=== PATIENT | female | born 1975 | race Caucasian/White ===

== ENCOUNTER → 2018-06-29 | Outpatient (CLI) | payer OTHER ==
[~2018-06-29] MED LIST: FLAS1EAC2 TD; FLAS1KIT2; INSU100I28 SQ; INSU100I30 SQ
[2018-06-29 10:08] LABS: PLATELET COUNT, AUTOMATED 338 K/uL (150-450)
[2018-06-29 10:14] LABS: LDL CHOLESTEROL 64 mg/dl
== END ==
LOC: LAB 09:31
PROVIDERS: ATTEND Internal Medicine
DX: E11.9 Type 2 diabetes mellitus without complications (principal)
CPT/HCPCS: 36415; 82040; 82247; 82310; 82374; 82435; 82465; 82565; 82947; 83036; 83718; 84075; 84132; 84155; 84295; 84443; 84450; 84460; 84478; 84520; 85025

== ENCOUNTER → 2018-07-06 | Outpatient (CLI) | payer OTHER ==
--- NOTE | 2018-07-06 11:32 | RADIOLOGY IMAGING REPORT ---
FACILITY: [facility] PATIENT NAME: Nora Winston : 1975 MR: [id number] V: [id number] EXAM DATE: ORDERING PHYSICIAN: DIPESH ANGUIANO TECHNOLOGIST: Location: [facility] Patient: Nora Winston : 1975 Visit/Account:[id number] Date of Sevice: 07/06/2018 CAROTID HISTORY: carotid calcification on dental x-ray, type I diabetes COMPARISON: None. FINDINGS: Grayscale, duplex and color Doppler interrogation of the extracranial carotid and vertebral arteries was performed bilateral. On the right, peak systolic velocities within the common and internal carotid arteries are 135 and 89 cm/sec respectively. There is very mild plaque at the right carotid bulb. Antegrade flow within th e common, internal and external carotid arteries as well as vertebral artery. ICA/CCA ratio 1. On the left, peak systolic velocities within the common and internal carotid arteries are 135 and 80 cm/sec respectively. There is very mild plaque left carotid bulb. Antegrade flow within the common, internal and external carotid arteries as well as vertebral artery. ICA/CCA ratio 0.7. Incidentally noted is a 1.2 cm slightly heterogeneous ovoid nodule in the left lobe the thyroid gland . Formal thyroid ultrasound may be helpful IMPRESSION: Very mild plaque at the carotid bulbs bilaterally although no hemodynamically significant lesion iden tified 1.2 cm left thyroid nodule for which formal thyroid ultrasound may be helpful Velocity criteria are extrapolated from diameter data as defined by the Society of Radiologists in Ul trasound Consensus Conference Radiology 2003; 229;340-346 Report Dictated By: Amber Rice MD at 07/06/2018 11:24 AM Report E-Signed By: Amber Rice MD at 07/06/2018 11:26 AM WSN:[email or web address]
== END ==
LOC: US 00:52
PROVIDERS: ATTEND Internal Medicine
DX: I65.23 Occlusion and stenosis of bilateral carotid arteries (principal); E04.1 Nontoxic single thyroid nodule
CPT/HCPCS: 93880

== ENCOUNTER → 2018-07-20 | Outpatient (CLI) | payer OTHER | LOC: LAB 09:40 | PROVIDERS: ATTEND Internal Medicine | DX: E11.9 Type 2 diabetes mellitus without complications (principal) | CPT/HCPCS: 81001; 82043 ==

== ENCOUNTER → 2018-08-03 | Outpatient (CLI) | payer OTHER ==
--- NOTE | 2018-08-03 10:56 | RADIOLOGY IMAGING REPORT ---
FACILITY: [facility] [place] PATIENT NAME: Nora Winston : 1975 MR: [id number] V: [id number] EXAM DATE: ORDERING PHYSICIAN: DIPESH ANGUIANO TECHNOLOGIST: Location: [facility] Patient: Nora Winston : 1975 Visit/Account:[id number] Date of Sevice: 08/03/2018 THYROID HISTORY: thyroid nodule COMPARISON: None. FINDINGS: SIZE: Right lobe: 5.9 x 1.3 x 1.9 cm Left lobe: 5.4 x 1.1 x 1.7 cm Isthmus: 1.1 mm PARENCHYMA: Homogeneous. NODULES: Right lobe: * There are two Tiny colloid cysts in the right lobe Left lobe: * There is a 1.1 x 0.8 x 0.7 cm slightly heterogeneous hypoechoic nodule in the mid left lobe Isthmus: * None discrete. VASCULARITY: Within normal limits. ADDITIONAL FINDINGS: None. IMPRESSION: There is a 1.1 x 0.8 x 0.7 cm heterogeneous hypoechoic nodule in the mid left lobe for which ultrasou nd-guided fine-needle aspiration is recommended REFERENCE: 2015 [place] [employer] Management Guidelines for Adult Patients with Thyroid Nodules and D ifferentiated Thyroid Cancer: The [place] [employer] Guidelines Task Force on Thyroid Nodul es and Differentiated Thyroid Cancer. SONOGRAPHIC PATTERNS: * Benign: Purely cystic nodules (no solid component); estimated risk of malignancy <1 percent; no bi opsy recommended. * Very Low Suspicion: Spongiform or partially cystic nodules without any of the sonographic features described in low, intermediate, or high suspicion patterns; estimated risk of malignancy <3 percent; consider FNA at > 2 cm (Observation without FNA is also a reasonable option). * Low Suspicion: Isoechoic or hyperechoic solid nodule, or partially cystic nodule with eccentric so lid areas, without microcalcification, irregular margin or ETE (extra-thyroidal extension), or taller than wide shape; estimated risk of malignancy 5-10 percent; recommend FNA at >1.5 cm. * Intermediate Suspicion: Hypoechoic solid nodule with smooth margins without microcalcifications, E TE (extra-thyroidal extension), or taller than wide shape; estimated risk of malignancy 10-20 percent ; recommend FNA at > 1 cm. * High Suspicion: Solid hypoechoic nodule or solid hypoechoic component of a partially cystic nodule with one or more of the following features: irregular margins (infiltrative, microlobulated), microc alcifications, taller than wide shape, rim calcifications with small extrusive soft tissue component, evidence of ETE (extra-thyroidal extension); estimated risk of malignancy >70-90 percent; recommend FNA at > 1 cm. NOTES: * Although a sonographically suspicious subcentimeter thyroid nodule without evidence of extrathyroi taqueria extension or sonographically suspicious lymph nodes may be observed with close sonographic follow -up rather than pursuing immediate FNA, patient age and preference may modify decision-making. A > 50% interval increase in nodule volume and/or development of new suspicious sonographic features are felt to be a valid reasons for potential re-aspiration of a nodule previously shown to have benig n FNA cytology. Report Dictated By: Amber Rice MD at 08/03/2018 10:49 AM Report E-Signed By: Amber Rice MD at 08/03/2018 10:52 AM WSN:[email or web address]
== END ==
LOC: US 01:59
PROVIDERS: ATTEND Internal Medicine
DX: E04.2 Nontoxic multinodular goiter (principal)
CPT/HCPCS: 76536

== ENCOUNTER → 2018-08-21 | Outpatient (CLI) | payer OTHER ==
[2018-08-21 08:27] LABS: INR 0.94
--- NOTE | 2018-08-21 14:41 | RADIOLOGY IMAGING REPORT ---
[place] [facility] [place] Nora Winston : 1975 MR: [id number] V: [id number] EXAM DATE: [id number] ORDERING PHYSICIAN: DIPESH ANGUAINO TECHNOLOGIST: Location: [facility] Patient: Nora Winston : 1975 Visit/Account:[id number] Date of Sevice: 08/21/2018 Exam type: US BIOPSY LOC/INJ THYROID History: thyroid nodule Comparison: Thyroid ultrasound August 03, 2018. Findings: Informed consent was obtained including potential risks and complications such as bleeding and infect ion. The left side of the patient's neck was prepped and draped usual sterile fashion. Local anesth esia was accomplished with 1% lidocaine. Under continuous direct sonographic guidance four 25-gauge FNA biopsies were obtained through the hypoechoic nodule in the left lobe of the thyroid gland. The samples were given to the diagnostic radiologic technologist for processing. The procedure was accomplished with out apparent complication IMPRESSION: 1. Successful sonographically guided FNA biopsy of the left thyroid nodule Report Dictated By: Amber Rice MD at 08/21/2018 2:33 PM Report E-Signed By: Amber Rice MD at 08/21/2018 2:37 PM WSN:[email or web address]
== END ==
LOC: US 02:14
PROVIDERS: ATTEND Internal Medicine
DX: E04.1 Nontoxic single thyroid nodule (principal)
CPT/HCPCS: 10005; 36415; 76942; 85610; 88104; 88172